=== PATIENT | female | born 1965 | race Caucasian/White ===

== ENCOUNTER → 2017-01-01 | Outpatient (CLI) | payer BC, OTHER ==
[~2017-01-01] MED LIST: ACET-1256 PO; BUPR100T8 PO; BUSP15TA70 PO; CLB200 PO; HYDR-5688 PO; MELATAB2 PO; OXYSR10 PO; PRD/1 PO; PRLSR20 PO; WARF2TAB PO
--- NOTE | 2017-01-01 16:05 | DIAGNOSTIC IMAGING REPORT ---
EXAMINATION: PELVIC ULTRASOUND CLINICAL HISTORY: POST-MENOPAUSAL BLEEDING BLEEDING COMPARISON STUDY: None FINDINGS: The uterus measured 6.2 cm.. The endometrial stripe measured 1.4 cm.. The right ovary measured 1.6 cm maximum dimension with normal vascular flow. The left ovary measured 1.7 cm normal vascular flow. There is no ultrasonographic evidence of ovarian torsion. It should be noted that ovarian torsion can be present with normal Doppler ultrasonographic findings. There was no evidence of pathologic free pelvic fluid. IMPRESSION: Moderate endometrial thickening at 1.4 cm. Diagnostic considerations include endometrial hyperplasia versus neoplasia. Otherwise negative study. Electronically signed by: Fernando Jennings M.D. 01/01/2017 4:03 PM Dictated Date/Time: 01/01/2017 4:02 PM
== END | disposition home or self-care (01) ==
LOC: C.ULTR 14:54
PROVIDERS: ATTEND Family Medicine
DX: N95.0 Postmenopausal bleeding (principal); R93.8 Abnormal findings on diagnostic imaging of other specified body structures

== ENCOUNTER → 2017-01-04 | Outpatient (CLI) | payer BC, OTHER | END | disposition home or self-care (01) | LOC: C.PATHSPEC 10:48 | PROVIDERS: ATTEND Obstetrics & Gynecology | DX: N95.0 Postmenopausal bleeding (principal) ==

== ENCOUNTER → 2017-01-04 | Outpatient (CLI) | payer BC, OTHER | END | disposition home or self-care (01) | LOC: C.PAPS 11:54 | PROVIDERS: ATTEND Obstetrics & Gynecology | DX: N95.0 Postmenopausal bleeding (principal) ==

== ENCOUNTER 2017-03-08 07:55 | Day surgery (SDC) | payer OTHER ==
[2017-03-05 14:23] VITALS: BMI 46.0
--- NOTE | 2017-03-05 14:40 | PAT Medication Instructions ---
Service Date Mar 05, 2017. Current Home Medication List Bupropion (Wellbutrin Sr), 200 MG PO QAM Buspirone Hcl (Buspar), 7.5 MG PO BID Melatonin (Melatonin Maximum Strengt), 1 TAB PO HS Omeprazole (Prilosec), 20 MG PO QAM Prednisone (Prednisone), 3 MG PO QAM Medication Instructions For Your Scheduled Surgery - Take the following medications the morning of surgery with a sip of water OTHERWISE NOTHING TO EAT OR DRINK AFTER MIDNIGHT: Omeprazole (Prilosec), 20 MG PO QAM Prednisone (Prednisone), 3 MG PO QAM Bupropion (Wellbutrin Sr), 200 MG PO QAM Buspirone Hcl (Buspar), 7.5 MG PO BID - Take the following medications as scheduled the night before surgery: Buspirone Hcl (Buspar), 7.5 MG PO BID Melatonin (Melatonin Maximum Strengt), 1 TAB PO HS If you have any questions please call us at [phone] or [phone] or [phone]
[~2017-03-08] VITALS: Ht 162.6 cm; Wt 121.3 kg
[~2017-03-08 07:55] MED LIST changes: -ACET-1256 PO; -CLB200 PO; -HYDR-5688 PO; +LACTATED RINGER'S 1000ML 1,000 ML IV SCH; -OXYSR10 PO; -WARF2TAB PO
[2017-03-08] MEDS ORDERED: MIDAZOLAM HCL 1 MG/ML 2ML VIAL ONE (08:24)
[2017-03-08] MEDS ORDERED: FENTANYL CITRATE INJ 50 MCG/1 ML 2 ML VIAL ONE (08:24)
[2017-03-08 08:34] VITALS: BP 151/76; PULSE 74; TEMP 36.7; O2SAT 97; Ht 162.6 cm; Wt 121.3 kg
[2017-03-08] MEDS ORDERED: ACET-1256 PO (08:34)
[2017-03-08] MEDS ORDERED: SODIUM CHLORIDE 0.9% 1000ML 1,000 ML IV SCH (09:03)
--- NOTE | 2017-03-08 09:03 | History & Physical Bridge Note ---
H&P Re-Evaluation Bridge Note: I have examined the patient, reviewed the History & Physical and in the interval since the performance of the History & Physical I have noted the following changes of clinical significance: No changes noted
--- NOTE | 2017-03-08 09:06 | Discharge Instructions ---
Discharge Instructions Date of Service Mar 08, 2017. Visit Reason for Visit: Post Menopausal Bleeding Discharge Discharge Diagnosis / Problem: D&C Discharge Goals Goal(s): Specific goals Activity Recommendations Activity Limitations: per Instructions/Follow-up section Anesthesia . Post Anesthesia Instructions: If you have had General Anesthesia or IV Sedation: * Do not drive today. * Resume driving when surgeon permits. * Do not make important decisions or sign legal documents today. * Call surgeon for: 1. Temperature elevations greater than 101 degrees F. 2. Uncontrollable pain. 3. Excessive bleeding. 4. Persistent nausea and vomiting. 5. Medication intolerance (nausea, vomiting or rash). * For nausea and vomiting use only clear liquids such as: tea, soda, bouillon until nausea subsides, then gradually increase diet as tolerated. * If you have any concerns or questions, call your surgeon's office. If physician is unavailable and it is an emergency, call 911 or go to the nearest emergency room. . Instructions / Follow-Up Instructions / Follow-Up ACTIVITY RECOMMENDATIONS: * Avoid tampons, douching, hot tubs, pools, and intercourse until bleeding has stopped. * May shower as usual. * No strenuous activity for 24-48 hours. After 24-48 hours, you may do anything you feel like doing (driving and sports are okay). SPECIAL CARE INSTRUCTIONS: Special Diet: * Mild nausea may occur in the immediate post-operative period. * Take clear liquids such as tea, cola or bouillon until all nausea has subsided; you may then resume your normal diet. Special Care: * Light bleeding and vaginal spotting can last from a few days to 3-4 weeks. Call your doctor if bleeding becomes heavier than the heaviest part of your period. * Check your temperature twice a day for one week. If it goes above 100.4 degrees Fahrenheit (38.0 Celsius), notify your doctor. * Call your doctor's office for an appointment for 6 weeks after your surgery. FOLLOW-UP VISIT: Call your doctor's office for an appointment for 6 weeks after your surgery. Diet Recommendations Recommended Home Diet: resume previous diet Pending Studies Studies pending at discharge: no Medical Emergencies . Who to Call and When: Medical Emergencies: If at any time you feel your situation is an emergency, please call 911 immediately. . Non-Emergent Contact Non-Emergency issues call your: Primary Care Provider . . "Provider Documentation" section prepared by Flor Nicholas. .
[2017-03-08] MEDS ORDERED: IBUPROFEN 600 MG TAB PO PRN (09:15)
[2017-03-08] MEDS ORDERED: PROMETHAZINE HCL INJ 25 MG in SODIUM CHLORIDE 0.9% 50ML 50 ML IV PRN (09:15)
[2017-03-08] MEDS ORDERED: OXYCODONE/ACETAMINOPHEN 5-325 TAB PO PRN ×2 (09:15)
[2017-03-08] MEDS ORDERED: KETOROLAC TROMETHAMINE 30 MG/ML VIAL IV. PRN (09:15)
[2017-03-08] MEDS ORDERED: ONDANSETRON INJ 2 MG/ML 2 ML VIAL IV PRN ×2 (09:15→10:15)
[2017-03-08] MEDS ORDERED: SUCCINYLCHOLINE CHLORIDE 20 MG/ML 10 ML VIAL IV ONE (10:12)
[2017-03-08] MEDS ORDERED: ROCURONIUM BROMIDE 10 MG/ML 5 ML VIAL ONE (10:12)
[2017-03-08] MEDS ORDERED: ONDANSETRON INJ 2 MG/ML 2 ML VIAL ONE (10:12)
[2017-03-08] MEDS ORDERED: DEXAMETHASONE SOD INJ 4 MG/ML VIAL ONE (10:12)
[2017-03-08] MEDS ORDERED: LIDOCAINE HCL 2% 2 ML VIAL (20MG/ML) ONE (10:12)
[2017-03-08] MEDS ORDERED: KETOROLAC TROMETHAMINE 30 MG/ML VIAL ONE (10:12)
[2017-03-08] MEDS ORDERED: PROPOFOL IV EMULSION 10 MG/ML 20 ML VIAL IV ONE (10:12)
[2017-03-08] MEDS ORDERED: LARYING-O-JET KIT (LTA) ONE ×2 (10:12)
[2017-03-08] MEDS ORDERED: LABETALOL HCL IV 5 MG/ML 20ML IV ONE (10:15)
[2017-03-08] MEDS ORDERED: ATROPINE SULFATE 0.1 MG/ML 5ML SYR IV PRN (10:15)
[2017-03-08] MEDS ORDERED: EpHEDrine SULFATE INJ 50 MG/ML AMP IV PRN (10:15)
[2017-03-08] MEDS ORDERED: GLYCOPYRROLATE INJ 0.2 MG/ML VIAL ONE (10:51)
[2017-03-08] MEDS ORDERED: NEOSTIGMINE METHYLSULFATE 5 MG/5 ML SYR ONE (10:51)
[2017-03-08] MEDS: FENTANYL CITRATE INJ 50 MCG/1 ML 2 ML VIAL IV PRN ×3 (11:48→11:58)
[2017-03-08 12:30] VITALS: BP 139/64; PULSE 70; TEMP 36.7; O2SAT 95
--- NOTE | 2017-03-08 12:47 | OPERATIVE REPORT ---
DATE OF OPERATION: 03/08/2017 PREOPERATIVE DIAGNOSES: Postmenopausal bleeding with thickened endometrium and morbid obesity. POSTOPERATIVE DIAGNOSES: Same. PROCEDURE: Attempted dilation and curettage, hysteroscopy unsuccessful, and repair of posterior vaginal laceration. SURGEON: Flor Nicholas MD METAL CONTROL WORKER: Dr. Campos. ESTIMATED BLOOD LOSS: 75 mL. FINDINGS: Small anteflexed cervix with extremely difficult visualization and access due to the patient's obesity. The uterine cavity not definitely visualized. Posterior fornix vaginal laceration ____ cm. Hemostatic following repair. SPECIMENS: None. COMPLICATIONS: Posterior vaginal wall laceration. DISPOSITION: Stable to the recovery room. DESCRIPTION: Pat is a 51-year-old ____. DICTATION ENDS HERE. I attest to the content of the Intraoperative Record and any orders documented therein. Any exception s are noted below.
--- NOTE | 2017-03-08 12:47 | Anesthesiology Progress Note ---
Anesthesia Post Op Note Date & Time Mar 08, 2017 at 12:47 Vital Signs Pain Intensity: 1 Vital Signs Past 12 Hours Date Time Temp Pulse Resp B/P (MAP) Pulse Ox O2 Delivery O2 Flow Rate FiO2 03/08/17 12:30 36.7 70 20 139/64 95 Room Air 03/08/17 12:15 36.4 69 17 129/69 95 Room Air 03/08/17 12:05 64 14 135/64 91 Room Air 03/08/17 11:55 65 15 132/75 95 Room Air 03/08/17 11:45 65 17 134/68 100 Mask 10 03/08/17 11:35 61 10 147/66 100 Mask 10 03/08/17 11:25 36.0 66 16 138/76 98 Mask 10 03/08/17 08:34 36.7 74 20 151/76 (101) 97 Room Air Notes Mental Status: alert / awake / arousable, participated in evaluation Pt Amnestic to Procedure: Yes Nausea / Vomiting: adequately controlled Pain: adequately controlled Airway Patency, RR, SpO2: stable & adequate BP & HR: stable & adequate Hydration State: stable & adequate Anesthetic Complications: no major complications apparent
[2017-03-08 13:00] VITALS: BP 119/59; PULSE 68; O2SAT 96
[2017-03-08 13:30] VITALS: BP 123/60; PULSE 77; TEMP 37.1; O2SAT 98
[2017-03-08 14:15] VITALS: BP 124/49; PULSE 0; PULSE 80; TEMP 36.8; O2SAT 96
[2017-03-08 15:15] VITALS: BP 131/65; PULSE 95; TEMP 36.9; O2SAT 94
--- NOTE | 2017-03-09 07:47 | OPERATIVE REPORT ---
DATE OF OPERATION: 03/08/2017 PREOPERATIVE DIAGNOSES: Postmenopausal bleeding with thickened endometrium and morbid obesity. POSTOPERATIVE DIAGNOSES: Same. PROCEDURE: Attempted dilation and curettage, hysteroscopy unsuccessful, and repair of posterior vaginal laceration. SURGEON: Flor Nicholas MD INFORMATION TECHNOLOGY TECHNICIAN: Dr. Campos. ESTIMATED BLOOD LOSS: 75 mL. FINDINGS: Small anteflexed cervix with extremely difficult visualization and access due to the patient's obesity. The uterine cavity not definitely visualized. Posterior fornix vaginal laceration <1cm. Hemostatic following repair. SPECIMENS: None. COMPLICATIONS: Posterior vaginal wall laceration. DISPOSITION: Stable to the recovery room. INDICATIONS FOR PROCEDURE: Pat Rabago is a 51-year-old , morbidly obese female, known to have postmenopausal bleeding, which was a light earlier in 2017. Recent pelvic ultrasound had showed an endometrial stripe of 1.4 cm. Office biopsy was attempted and showed a tiny bit of endocervical hyperplasia, was insufficient to sample the endometrium and was extremely limited by the patient's anatomy. In order to get better sampling, we scheduled her for D&C hysteroscopy to be done in the main OR due to her body mass index. DESCRIPTION OF PROCEDURE: The patient was brought to the operating room, placed on the table in the dorsal lithotomy position with Yellofin stirrups, prepped and draped in standard sterile fashion and a hard time-out was taken prior to proceeding. The bladder was emptied of 400 mL of clear yellow urine via straight catheterization. Attempt was then made to place a speculum in the vagina; however, due to excessive soft tissue, the standard weighted speculum was unable to reach even through the introitus. For this reason, the patient was placed in Trendelenburg position and a long weighted speculum was utilized. This allowed us to reach to the cervix, which was then able to be visualized and grasped with an anterior lip single tooth tenaculum. The uterus was gently sounded. The sound was to 6 cm. The cervix was then serially dilated to a 15-Stateless to allow passage of a 5-mm hysteroscope. The hysteroscope available to me was a 30-degree scope and when I asked for a regular scope, I was told that none were available within the entire operating room; therefore, an attempt was made to place a 30-degree scope. Due to severe anterior angulation of the cervix, the scope was placed just within the external os and was unable to be advanced forward until all the specula were removed from the vagina. The hysteroscope was able to be gently advanced forward using hysteroscopic visualization to maintain tracking along the endocervical canal. I was able to reach what appeared to be an endometrial cavity; however, it was largely obscured by what really looked like pillars of scar tissue crisscrossing the open space and making it difficult to pass the scope sufficiently to reach a definitively identifiable fundus with ostia. Watching the fluid deficit on the hysteroscopic fluid management showed the deficit was never above 280 mL (and that was at a time when significant fluid was seen to be pooling among the drapes). So, I do not feel that I had perforated and I feel confident and comfortable that I was in the endometrial canal; however, the scar or abnormal tissue was seen to be blocking the advancement of the scope cleanly through the fundus. We awaited arrival of the regular scope while I attempted using the 30-degree unfortunately I was then told that none were available at all, so I did not have the opportunity to exchange a 30-degree for a 12-degree scope through the hysteroscopic channel that was already placed in the uterus. The only option for using a 0-degree scope which I felt might help in a better visualize the cavity was by changing to the MyoSure scope which was available. I removed the hysteroscope then made an attempt to place the MyoSure scope. Once again due to the anatomy and angulation of the uterus and cervix, I had to place the tip of the scope in the endocervical os and then remove all specula and attempted to gently guide the scope into the cervix once more. Unfortunately, the scope slipped down over the relatively flat posterior lip of the cervix and then lacerated the 6 o'clock area of the posterior vaginal fornix. The laceration was recognized immediately and the scope was withdrawn. I was able, on bimanual examination, to palpate a subcentimeter divot on the posterior aspect of the cervix/posterior vaginal vault that accommodated the tip of my finger but did not feel to be through and through. At this point, a decision was made to terminate a hysteroscopy given the difficulty as I felt it posed significant risk to the patient and was increasingly unlikely to succeed. Using 2 scrubbed assistants, we were able to retract the labia. Using a weighted speculum and Breisky retractors as well as an allis placed on the posterior lip of the cervix, I was able to visualize the area of the laceration, which was freely bleeding, but again did not appear to be through and through as I was unable to see either omental fat or bowel or any intraabdominal contents at any time. I made an attempt to oversew this laceration using Elijah suture trailer driver and 0 Vicryl popoff. I placed my first [id number]-[id number]-[id number] suture at the apex of the laceration farthest from the cervix hoping to use traction on this to bring the remainder of the laceration into better view as it was least partially obscured by being behind the posterior lip of the cervix. Unfortunately, this proved extremely difficult due to the patient's anatomy. I called my partner Dr. Campos , who was able to come to the operating room and assist in obtaining visualization. Due to our respective positions at the time when we finally achieved acceptable visualization of the laceration site, she had the best angle and placed a wlnjbc-[id number] suture over the laceration. This was able to achieve very close to complete hemostasis. After further discussion, although I had not seen a through and through puncture, I still felt I could not rule out that one existed, and I had not gotten what I would consider efficient visualization of the entire area. We each gently palpated again, and although we could still not confirm a through and through puncture, in order to protect the area, we elected to suture the posterior cervical lip to the posterior vaginal wall over the area of the laceration to provide reinforcement to this area. Once that was completed, the instruments were withdrawn such that we could watch each clamp site on the posterior and then anterior lip of the cervix for any bleeding. As there was seen to be none, all retractors were then removed. The patient was taken out of Trendelenburg and observed to ensure that there was no vaginal bleeding, which there was not. At that point, the procedure was brought to completion and the patient was transferred in stable condition to the recovery room. I had a lengthy discussion with Dr. Rabago (the patient, who is also a hospice physician) in the PACU after she had sufficiently recovered. The laceration was disclosed to her, and we discussed that the endometrial cavity appeared abnormal and was difficult to access. I had not been able to get any tissue sample as I was never able to confirm I was in the correct cavity by seeing ostia, so it was unsafe to curette. 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 We discussed that in her case if we cannot sample the lining her options are observation with serial imaging (not recommended) vs proceeding to hysterectomy locally vs hysterectomy with a Mapping Analyst Oncologist. Given the opportunity to do frozen section and proceed with staging concurrently if she has her surgery with an Oncologist , she is leaning towards doing so. We plan to make the final decision and surgical or transfer arrangements at her post op check in 2 weeks. I attest to the content of the Intraoperative Record and any orders documented therein. Any exceptions are noted below. SHANNEND
== END 2017-03-08 15:44 | disposition home or self-care (01) ==
LOC: C.ACU 07:55
PROVIDERS: ATTEND Obstetrics & Gynecology
DX: N95.0 Postmenopausal bleeding (principal); N99.71 Accidental puncture and laceration of a genitourinary system organ or structure during a genitourinary system procedure; E66.01 Morbid (severe) obesity due to excess calories; Z68.42 Body mass index [BMI] 45.0-49.9, adult; F17.210 Nicotine dependence, cigarettes, uncomplicated; Z79.899 Other long term (current) drug therapy

== ENCOUNTER → 2017-04-21 | Outpatient (CLI) | payer OTHER ==
[~2017-04-21] MED LIST changes: +ACET-1256 PO; -LACTATED RINGER'S 1000ML 1,000 ML IV SCH; +OPTIRAY 320 IV PRN
[2017-04-21 09:38] LABS: ALT/SGPT 27 U/L (12-78); AST/SGOT 17 U/L (15-37); BLOOD UREA NITROGEN 13 mg/dl (7-18); BUN/CREATININE RATIO 16.3 (10-20); CALCIUM 9.3 mg/dl (8.5-10.1); CARBON DIOXIDE 26 mmol/L (21-32); CHLORIDE 109 mmol/L (98-107); CREATININE 0.79 mg/dl (0.60-1.20); GLUCOSE 92 mg/dl (70-99); MAGNESIUM 2.2 mg/dl (1.8-2.4); POTASSIUM 4.3 mmol/L (3.5-5.1); SODIUM 142 mmol/L (136-145)
[2017-04-21 09:40] LABS: ALB/GLOB RATIO 0.8 (0.9-2); ALKALINE PHOSPHATASE 72 U/L (45-117); PHOSPHORUS 3.5 mg/dl (2.5-4.9)
[2017-04-21 09:45] LABS: BASO % 0.4 %; BASO ABS # 0.03 K/uL (0-0.2); COMPLETE YES; HEMATOCRIT 39.7 % (37-47); IG% 0.3 %; MEAN CELL VOLUME 88.8 fL (80-100); MEAN CORPUSCULAR HEMOGLOBIN 30.2 pg (25-34); MEAN PLATELET VOLUME 9.5 fL (7.4-10.4); MONO % 9.9 %; NEUT % 51.4 %; PLATELET COUNT 327 K/uL (130-400); RED BLOOD COUNT 4.47 M/uL (4.2-5.4); WHITE BLOOD COUNT 7.05 K/uL (4.8-10.8)
--- NOTE | 2017-04-21 10:08 | DIAGNOSTIC IMAGING REPORT ---
CT OF THE CHEST WITH IV CONTRAST CLINICAL HISTORY: POST MENOPAUSAL BLEEDING POSSIBLE ENDOMETRIAL NEOPLASM COMPARISON STUDY: No previous studies for comparison. TECHNIQUE: Following the IV administration of 120 mL of Optiray-320, CT of the thorax was performed from the thoracic inlet to the lung bases. Images are reviewed in the axial, sagittal, and coronal planes. IV contrast was administered without complication. A dose lowering technique was utilized adhering to the principles of ALARA. CT DOSE: 1698.97 mGycm FINDINGS: Thyroid: Imaged portions of the thyroid gland are normal in appearance. Thoracic aorta: The thoracic aorta is normal in course and caliber, noting standard 3-vessel arch anatomy. No aneurysm or dissection is seen. Pulmonary vasculature: The pulmonary trunk is normal in caliber. There are no central filling defects identified to suggest pulmonary embolus. Note that this examination was not protocoled for the evaluation of pulmonary emboli. HEART: The heart is normal in size and configuration, without pericardial effusion. Lungs and pleural spaces: The lungs and pleural spaces are clear. Mediastinum: There is no mediastinal lymphadenopathy. Sugey: Clear. Axilla: Clear. Upper abdomen: Partially visualized upper abdominal viscera is within normal limits. Skeletal structures: There are no lytic or blastic osseous lesions. There is a 5 cm mass, contiguous with the superior aspect of the intrahepatic IVC and extending to the level of the right atrium. Diagnostic considerations include an IVC aneurysm with a possible IVC stenosis of the IVC right ureteral junction, versus a neoplasm. An MRI is recommended in follow-up. IMPRESSION: 1. 5 cm mass, contiguous with the superior aspect of the intrahepatic IVC and extending to the level of the right atrium. Diagnostic considerations include an IVC aneurysm with a possible IVC stenosis of the IVC right ureteral junction, versus a neoplasm. An MRI is recommended in follow-up. Electronically signed by: Ranulfo Grayson M.D. 04/21/2017 10:07 AM Dictated Date/Time: 04/21/2017 9:55 AM
--- NOTE | 2017-04-21 10:25 | DIAGNOSTIC IMAGING REPORT ---
ABD/PELVIS IV AND ORAL CONT HISTORY: 51 years-old Female POST MENOPAUSAL BLEEDING acute postmenopausal vaginal bleeding. Follow-up exam. Endometrial thickening was noted on comparison ultrasound measuring 1.4 cm. COMPARISON: Pelvic ultrasound 01/01/2017, chest CT of same day. TECHNIQUE: Multiple axial CT images of the abdomen and pelvis were obtained following the intravenous administration of 120 mL Optiray 320. Oral contrast was also used. A dose lowering technique was used consistent with the principals of ANJELICA. FINDINGS: 5.0 x 3.5 cm mass is with the IVC extending towards the right atrium is again noted, better discussed on CT chest of same day. Lung bases are otherwise clear. No pneumoperitoneum. Inferior cardiac chambers are otherwise within normal limits. The liver, spleen, pancreas, gallbladder and adrenal glands are within normal limits. 2 mm hyperattenuating focus of the inferior pole right kidney on image 218 of series 6 suggests nonobstructing calculus. Kidneys are otherwise unremarkable. Ureters are within normal limits. Urinary bladder is partially collapsed. Previously noted mild endometrial thickening is not well seen by CT. No uterine or adnexal mass lesions are identified. Ovaries do not appear to be enlarged. The abdominal aorta is normal in course and caliber. No bulky adenopathy identified. There is no bowel obstruction or focal bowel wall thickening. The appendix does not appear to be inflamed. Soft tissues are unremarkable. The bones are intact without suspicious lytic or blastic bony lesions. IMPRESSION: 1. 5.0 x 3.5 cm mass contiguous with the IVC extending towards the right atrium is again seen, further discussed on CT chest of same day. 2. No acute intra-abdominal or intrapelvic abnormality identified. No uterine or adnexal mass lesions are seen. 3. 2 mm hyperattenuating focus of the inferior pole right kidney suggests nonobstructing calculus. No hydronephrosis. The above report was generated using voice recognition software. It may contain grammatical, syntax or spelling errors. Electronically signed by: Lowell Geiger M.D. 04/21/2017 10:24 AM Dictated Date/Time: 04/21/2017 10:16 AM
== END | disposition home or self-care (01) ==
LOC: C.CTS 08:39
PROVIDERS: ATTEND Obstetrics & Gynecology Gynecologic Oncology
DX: N95.0 Postmenopausal bleeding (principal); Z11.59 Encounter for screening for other viral diseases

== ENCOUNTER → 2017-04-26 | Outpatient (CLI) | payer OTHER ==
[~2017-04-26] MED LIST changes: -OPTIRAY 320 IV PRN
--- NOTE | 2017-04-26 13:49 | DIAGNOSTIC IMAGING REPORT ---
CHEST COMBO CLINICAL HISTORY: 51 years-old Female presenting with LOCALIZED SWELLING, MASS, LUMP OF TRUNK AREA. TECHNIQUE: Multisequence, multiplanar MR imaging of the chest was performed before and after the administration of intravenous contrast. IV contrast: 12 mL of Gadavist. COMPARISON: Chest CT from 04/21/2017. FINDINGS: Localizer images: Unremarkable. There is mild dilatation of the suprahepatic inferior vena cava measuring up to 4 cm in diameter. The inferior cavoatrial junction is widely patent. No axillary mediastinal lymphadenopathy. Normal aorta. Normal heart size. No pericardial pleural effusion. No gross evidence of pulmonary nodule or infiltrate. Limited evaluation of the upper abdomen demonstrates normal liver, gallbladder, spleen, pancreas, adrenal glands, and kidneys. No evidence of hepatic steatosis. Bowel grossly normal. Normal bone marrow signal intensity. 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 Electronically signed by: Joni Wayne M.D. 04/26/2017 1:47 PM Dictated Date/Time: 04/26/2017 1:42 PM
== END | disposition home or self-care (01) ==
LOC: C.MRIBC 12:28
PROVIDERS: ATTEND Physician Assistant
DX: R22.2 Localized swelling, mass and lump, trunk (principal)

== ENCOUNTER → 2017-06-14 | Outpatient (CLI) | payer OTHER ==
[2017-06-14 12:11] LABS: BASO % 0.7 %; BASO ABS # 0.05 K/uL (0-0.2); COMPLETE YES; EOS % 4.7 %; HEMATOCRIT 37.2 % (37-47); IG% 0.4 %; LYMPH % 38.7 %; LYMPH ABS # 2.88 K/uL (1.2-3.4); MEAN CELL VOLUME 89.9 fL (80-100); MEAN CORPUSCULAR HEMOGLOBIN 28.7 pg (25-34); MEAN PLATELET VOLUME 9.2 fL (7.4-10.4); MONO % 9.8 %; NEUT % 45.7 %; PLATELET COUNT 437 K/uL (130-400); RED BLOOD COUNT 4.14 M/uL (4.2-5.4); WHITE BLOOD COUNT 7.45 K/uL (4.8-10.8)
== END | disposition home or self-care (01) ==
LOC: C.LAB 10:01
PROVIDERS: ATTEND Obstetrics & Gynecology Gynecologic Oncology
DX: C54.1 Malignant neoplasm of endometrium (principal)

== ENCOUNTER → 2017-10-15 | Outpatient (CLI) | payer OTHER ==
--- NOTE | 2017-10-18 12:41 | MAMMOGRAPHY REPORT ---
BILATERAL DIGITAL SCREENING MAMMOGRAM TOMOSYNTHESIS WITH CAD: 10/15/2017 CLINICAL HISTORY: Routine screening. Patient has no complaints. TECHNIQUE: Breast tomosynthesis in addition to standard 2D mammography was performed. Current study was also evaluated with a Computer Aided Detection (CAD) system. COMPARISON: Comparison is made to exams dated: 07/06/2016 mammogram, 01/09/2015 mammogram, 10/30/2013 m ammogram, 08/16/2012 mammogram, 05/05/2011 mammogram, and 10/29/2010 ultrasound - [facility]. BREAST COMPOSITION: There are scattered areas of fibroglandular density in both breasts. FINDINGS: No suspicious masses, calcifications, or areas of architectural distortion are noted in ei ther breast. There has been no significant interval change compared to prior exams. IMPRESSION: ACR BI-RADS CATEGORY 1: NEGATIVE There is no mammographic evidence of malignancy. A 1 year screening mammogram is recommended. The pa tient will receive written notification of the results. Approximately 10% of breast cancers are not detected with mammography. A negative mammographic report should not delay biopsy if a clinically suggestive mass is present. Edna Loza M.D. /:10/15/2017 12:13:35 [employer]: [employer]adna SHI(Diana)(M), [facility] letter sent: Normal 1/2 BI-RADS Code: ACR BI-RADS Category 1: Negative
== END | disposition home or self-care (01) ==
LOC: C.MAMM 09:37
PROVIDERS: ATTEND Physician Assistant
DX: Z12.31 Encounter for screening mammogram for malignant neoplasm of breast (principal)